=== PATIENT | female | born 1955 | race Caucasian/White ===

== ENCOUNTER → 2017-11-07 16:58 | Outpatient (CLI) | payer MEDICAID, SELFPAY ==
--- NOTE | 2017-11-07 | CER_PTH ---
PATIENT: DILCIA WYNN LOC: [facility] U#:[id number] AGE/SX: 69/F ROOM: RE11/07/[address]: Dr. Moises Tracey MD : 1955 BED: DIS: SPEC #: [id number] RECD: 11/07/17 16:58 STATUS: LILLIAN SUKHDEV #: [id number] DAYRON: 11/07/17 00:[address]: Moises Tracey DEPT: SURGICAL PATHOLOGY RECD BY: Jeff Garcia ENTERED: 11/08/17 07:43 SP TYPE: CERV OTHR DR: Marti Caldera PA-C Tissues: A - Uterine cervix, NOS B - Endocervical Procedures: Surgery Specimen Level IV HEADER OPERATION: Colposcopy PRE-OP DIAGNOSIS: ASCUS, HPV HR positive TISSUE SUBMITTED: A ? Cervical biopsy 7 o?clock, B - ECC MICROSCOPIC DIAGNOSIS A. Cervix, 7 o?clock, biopsy: Focal changes suspicious for HPV cytopathic effects. B. ECC: Fragments of benign endocervical epithelium, blood and mucous. BONI:bulmaro 11/09/17 COMMENT A. Results from immunohistochemistry ([id number]) for surrogate HPV marker (p16) will be reported separately. MICROSCOPIC DESCRIPTION Slides are reviewed. GROSS DESCRIPTION A - Received in fixative is one container labeled with the patient's name and designated cervical biopsy 7 o'clock. The specimen consists of two irregular fragments of light mcqueen soft tissue that in aggregate measure 0.5 x 0.5 x 0.1 cm. The specimen is totally submitted in one cassette. B - Received in fixative is one container labeled with the patient's name and designated ECC. The specimen consists of multiple fragments of hemorrhagic mucoid tissue that in aggregate measure 1.5 x 1 x 0.1 cm. The specimen is totally submitted in one cassette. / BONI:bulmaro 11/08/17 TC:5 CPT: 85821 x2
--- NOTE | 2017-11-07 | IMM_PTH ---
PATIENT: DILCIA WYNN LOC: [facility] U#:[id number] AGE/SX: 69/F ROOM: RE11/07/[address]: Dr. Moises Tracey MD : 1955 BED: DIS: SPEC #: [id number] RECD: 11/09/17 11:26 STATUS: LILLIAN REAllie #: [id number] DAYRON: 11/07/17 00:[address]: Moises Tracey DEPT: IMMUNOHISTOCHEMISTRY RECD BY: Sana Singh ENTERED: 11/09/17 11:26 SP TYPE: IMMUNO OTHR DR: Marti Caldera PA-C Tissues: A - Uterine cervix, NOS Procedures: p16 (initial) KI-67 (add) PHYSICIAN & INSTITUTION [place] [id number] SPECIMEN INFORMATION: Tissue Source: A ? Cervical biopsy 7 o?clock Clinical Info: ASCUS, HPV/HR positive Specimen Number: [id number] CPT code: 07214, 29739 METHODOLOGY: Deparaffinized sections of prefer/formalin-fixed tissue or PAP/DQ stained slides are incubated with monoclonal/polyclonal antibodies/oligonucleotide probes. Localization is made via biotin free immunoperoxidase method. Appropriate controls are performed and reacted as expected. Results on target cell population are indicated in the following table: RESULTS: ANTIBODY / CLONE RESULT Block A P16 (E6H4) negative Ki-67 (30-9) positive, low These tests were developed and their performance characteristics determined by [facility]. They may not have been cleared or approved by the U.S. Food and Drug Administration. The FDA has determined that such clearance or approval is not necessary. INTERPRETATION: A. Cervix, 7 o?clock, biopsy: Focal changes suspicious for HPV cytopathic effects. SJ:bulmaro 11/09/17
== END ==
PROVIDERS: Family Provider Family Medicine; PCP Family Medicine; Visit Provider Obstetrics & Gynecology
DX: R87.610 Atypical squamous cells of undetermined significance on cytologic smear of cervix (ASC-US) (principal)
CPT/HCPCS: 88305; 88341; 88342

== ENCOUNTER → 2018-04-24 13:47 | Outpatient (CLI) | payer MEDICAID, SELFPAY ==
[2018-04-26 11:59] LABS: HPV Reflexed? NOT INDICATED
== END ==
PROVIDERS: Family Provider Family Medicine; PCP Family Medicine; Referring Provider Obstetrics & Gynecology; Visit Provider Obstetrics & Gynecology
DX: Z12.4 Encounter for screening for malignant neoplasm of cervix (principal)
CPT/HCPCS: 88175; G0145

== ENCOUNTER → 2019-05-26 13:57 | Outpatient (CLI) | payer MEDICARE, OTHER, SELFPAY ==
[2019-05-29 17:50] LABS: HPV APTIMA, High Risk Negative (Negative)
[2019-05-29 17:51] LABS: HPV Reflexed? NOT INDICATED
== END ==
PROVIDERS: Visit Provider Obstetrics & Gynecology
DX: Z12.4 Encounter for screening for malignant neoplasm of cervix (principal)
CPT/HCPCS: 88175; G0145

== ENCOUNTER 2021-12-22 06:18 | Day surgery (SDC) | payer MEDICARE, OTHER, SELFPAY ==
[2021-12-22 06:51] VITALS: BP 133/73; PULSE 61; RESP 16; TEMP 36.7; O2SAT 100; BMI 19.3
[2021-12-22] MEDS: Lactated Ringers 1,000 ML 15 ML IV (07:09)
[2021-12-22] MEDS: Cefazolin 2 GM in 0.9% Normal Saline 100 ML IV (08:32)
--- NOTE | 2021-12-22 08:32 | RAD_ITS ---
INDICATION: FX EXAMINATION/TECHNIQUE: X-RAY - RIGHT XR Wrist 2 Views 6 VIEWS COMPARISON: None. FINDINGS: Fluoroscopy time: 74.5 seconds. Fluoroscopy dose: 1.50 mGy. 6 intraoperative fluoroscopic images were obtained. Images demonstrate localization of the distal radius fracture followed by internal fixation using plate and screws. Final image demonstrates fracture fragments in near anatomic alignment is unremarkable internal fixation prosthesis. No evidence of lucencies visualized surrounding the prosthesis. Unremarkable alignment of the remaining carpal bones. No radiologist was present for the procedure, please refer to operative report for details.. RAD/Wrist 2 Views IMPRESSION: Please refer to operative report for details.. Electronically Signed: Kishor Chavarria MD at 11:32 EDT ,
[2021-12-22 11:12] VITALS: BP 120/66; BP 133/73; PULSE 78; RESP 18; TEMP 36.6; O2SAT 96
[2021-12-22 11:15] VITALS: BP 120/65; BP 133/73; PULSE 68; RESP 18; O2SAT 99
[2021-12-22 11:30] VITALS: BP 110/59; BP 133/73; PULSE 66; RESP 18; O2SAT 99
[2021-12-22 11:43] VITALS: BP 133/73; PULSE 60; RESP 18; TEMP 36.2; O2SAT 100
[2021-12-22 12:30] VITALS: BP 123/60; BP 133/73; PULSE 72; RESP 16; TEMP 36.6; O2SAT 95
--- NOTE | 2021-12-22 18:53 | PCM.OPRPT ---
Report of Operation Date of Procedure: 12/22/21 Description of Surgical Findings:: Preoperative diagnosis: Displaced, intra-articular subacute right distal radius fracture Postoperative diagnosis: Right distal radius malunion Procedure: Right distal radius corrective osteotomy with cancellous allograft bone grafting Surgeon: Joselito Bolton DO Lead Former: Kami Ponce PA-C Anesthesia: General endotracheal with axillary block Anesthesiologist: Dr. Fairbanks Complications: None apparent Drains: None Estimated blood loss: 20 cc Urinary output: None recorded IV fluids: Per anesthesia record Specimens: None Surgical implants: Arthrex 3-hole narrow volar locking plate, cancellous allograft bone chips Surgical indications: This is a 66-year-old female who is followed in the outpatient setting following a fall on an outstretched right hand on November 21, 2021. Closed reduction at [place] emergency department demonstrated appropriate, acceptable alignment amenable to initial nonoperative management. Patient was in a fiberglass splint following reduction. I attempted to transition the patient to a fiberglass short arm cast in the office. Patient had significant anxiety and claustrophobia regarding casting. We discussed the risks of utilizing alternatives including loss of fracture reduction. We settled upon using a Exos fracture brace. This was molded in the office approximately 1 week following injury. Patient returned a few days after the application of the Exos with complaints that the brace was too tight. I remolded the brace and loosened it slightly. We followed x-rays. X-rays were obtained last week and demonstrated loss of reduction with significant dorsal angulation and intra-articular step-off of the scaphoid facet of the distal radius. Patient is quite active and plays pickle ball and golf. I explained that the alignment of her wrist would likely result in loss of function and stiffness as well as posttraumatic arthritis. I recommend surgical intervention in the form of right distal radius open reduction internal fixation. The risk, benefits, terms the procedure reviewed with patient at length. She agreed to proceed with the procedure. Risks included but were not limited to bleeding, flexion, loss of life or limb, posttraumatic arthritis, need for additional surgery, neurovascular injury, DVT or PE, stiffness, persistent pain, DVT or PE, or risk of anesthesia. Patient expressed understands risk was proceed with surgery. Informed sent obtained in the outpatient setting. Description of procedure: Patient was seen in preoperative holding area. She was identified by name, medical record number, date of . The operative extremity was marked with a surgical marker. We confirmed informed consent with the patient and all questions were answered to his satisfaction. An axillary block was administered in the preoperative holding area by the anesthesia staff. Patient was neurovascular intact prior to the procedure. At time of her procedure, patient was brought to the operative suite and positioned supine on a standard operating table. All bony prominences were well-padded. General anesthesia was administered. Endotracheal tube was placed. After adequate anesthesia, a well-padded pneumatic tourniquet was applied to the upper arm of the operative extremity. We then spun the bed 90 degrees. We prepped and draped the operative extremity in a normal, sterile orthopedic fashion. We then performed a timeout with all parties in attendance in agreement the side, site, and operation be performed. No concerns were voiced and we elected to proceed. 2 g Ancef IV was administered for antibiotic prophylaxis prior to the incision by anesthesia staff. I first exsanguinated the operative extremity with an Esmarch bandage. Tourniquet was inflated to 250 mmHg were made up for approximately 1 hour. Esmarch was removed. I planned a standard FCR approach over the flexor carpi radialis tendon along the volar wrist. Skin was sharply incised with a 15 blade scalpel down to the level of the tendon sheath. The FCR tendon sheath was identified and split longitudinally in line with the incision. I then retracted the FCR tendon ulnarly, split the floor of the tendon sheath in line with the incision. The flexor pollicis longus muscle belly was then encountered and retracted ulnarly. The pronator quadratus was then encountered. A self-retaining retractor was placed deep. Performed an L-shaped tenotomy of the pronator quadratus and subperiosteally elevated it ulnarly. This revealed the volar cortex of the distal radius. The fracture appeared to have been completely healed from gross appearance. C-arm was brought in and fracture line was identifiable on fluoroscopy. At this point, fracture was at the point of malunion. I attempted an osteoclasis with a freer elevator was unsuccessful. Fracture site was then triangulated. Osteotomy was then made with a osteotome. I levered the distal radial segment volarly to regain volar tilt. Intra-articular split through the radial column was also freed with an osteotome and [place] elevator. This was elevated with a ulnar translation of the carpus to regain anatomic alignment of the distal radius articular surface. Cancellous chips were then placed in the fracture gap for structural support and to allow for bony ingrowth. I then selected a narrow volar locking plate from [employer]. I utilized it in a kickstand fashion. I placed the distal segment along the distal radius metaphysis and utilized a kickstand device from the manufacture in the most proximal hole. This was pinned in place. Plate was carefully placed in a advantageous position to allow for correction of the deformity. I utilized a cortical screw in the distal segment to compress the plate to bone. This was later exchanged for a locking screw following locking screw placement and the remaining distal row holes. I then placed a bicortical cortex screw in the oblong hole of the plate. A volar translation and ulnar deviation of the carpus was applied while the cortical screw was tightened. This anatomically reduce the fracture. I then placed additional screws in the shaft portion of the plate including a bicortical cortex screw in the proximal hole and a bicortical locking screw in the distal shaft hole. I then placed unicortical locking screws in the radial styloid through the plate under direct fluoroscopic guidance. Final fluoroscopic images were obtained and demonstrated anatomic reduction and appropriate hardware positioning and sizing. Wound was then copiously irrigated normal saline solution. Tourniquet was deflated. Hemostasis was excellent. Wound was then closed in layers with buried 3-0 Vicryl suture in the dermis. Skin was finally reapproximated with a running 4-0 Monocryl suture in subcuticular fashion and finally reapproximated with skin glue. A sterile compression dressing was applied. A short arm volar fiberglass splint was then applied. Patient was then safely extubated in the operative suite after reversal of anesthesia. She was transferred to a gurney and subsequently to PACU in stable condition. She tolerated the procedure well without complication. Need for skilled assistant professor of drama: Kami Ponce PA-C was critical to the outcome of the case. During the course of the procedure the physician assistant professor of drama played a vital role. Her intimate knowledge of my steps in the procedure aided in safe and expedient completion of the procedure. The PA played a vital role in positioning particularly in obtaining the appropriate positioning. The PA was also vital in the retraction of soft tissues during the exposure and protecting vital structures. The PA was also vital and protecting soft tissues during times of osteotomy. She also played a vital role in closure with my direct supervision. Post Operative Plan: Weightbearing: Nonweightbearing operative extremity Antibiotics: 2 g Ancef x 1 dose preoperatively DVT Prophylaxis: 81 mg aspirin twice daily recommended to start tomorrow until follow-up, early mobilization Dressing: Maintain splint, keep it clean dry and intact until follow-up X-Rays: 2 weeks postop in the office Pain Medication: Provided in the office Follow-up: 2 weeks post-operatively with me in the office
== END 2021-12-22 12:45 | disposition home or self-care (01) ==
LOC: SDC 06:22 → AC 06:23
PROVIDERS: PCP Family Medicine; Referring Provider Student in an Organized Health Care Education/Training Program; Visit Provider Student in an Organized Health Care Education/Training Program
PROC: (CPT 28300; principal; 2021-12-22 07:40)
DX: S52.571D Other intraarticular fracture of lower end of right radius, subsequent encounter for closed fracture with routine healing (principal); R03.0 Elevated blood-pressure reading, without diagnosis of hypertension; M19.90 Unspecified osteoarthritis, unspecified site; Z78.0 Asymptomatic menopausal state; Z87.81 Personal history of (healed) traumatic fracture; Z86.19 Personal history of other infectious and parasitic diseases
CPT/HCPCS: 28300; 01480; 64450; 73100; 76000; C1713; J7120; J2405